=== PATIENT | female | born 1940 | race Caucasian/White ===

== ENCOUNTER 2018-09-15 11:41 | Inpatient (IN) | payer MEDICARE, BC ==
[2018-09-15] MEDS: SOD CHLORIDE 0.9% 500 ML IV (12:40)
[2018-09-15 12:48] LABS: ADD MAN DIFF? NO
[2018-09-15 12:53] LABS: WHITE BLOOD COUNT 7.5 10^3/ul (4.8-10.8)
[2018-09-15 12:53] LABS: BASOPHILS % 0.3 % (0.0-2.0); EOSINOPHILS # 0.1 10^3/ul (0.0-0.5); EOSINOPHILS % 1.7 % (0.0-7.0); HEMATOCRIT 34.1 % (37.0-47.0); HEMOGLOBIN 10.9 g/dl (12.0-16.0); LYMPHOCYTES # 0.9 10^3/ul (0.8-2.9); LYMPHOCYTES % 11.5 % (15.0-51.0); MEAN CORPUSCULAR HEMOGLOBIN 31.1 pg (29.0-33.0); MEAN CORPUSCULAR VOLUME 97.2 fl (82.0-101.0); MEAN PLATELET VOLUME 12.1 fl (7.4-10.4); MONOCYTES % 12.7 % (0.0-11.0); NEUTROPHIL # 5.5 10^3/ul (1.6-7.5); NEUTROPHILS % 72.9 % (39.0-77.0); PLATELET COUNT 215 10^3/UL (140-415); RED BLOOD COUNT 3.51 10^6/ul (4.20-5.40); RED CELL DISTRIBUTION WIDTH 14.4 % (11.5-14.5)
[2018-09-15 13:20] LABS: ALANINE AMINOTRANSFERASE 15 IU/L (13-69); ALBUMIN 3.4 g/dl (3.3-4.9); ALBUMIN/GLOBULIN RATIO 1.09; ALKALINE PHOSPHATASE 74 IU/L (42-121); ANION GAP 8 (5-13); ASPARTATE AMINO TRANSFERASE 38 IU/L (15-46); BILIRUBIN,INDIRECT 0.1 mg/dl (0-1.1); BILIRUBIN,TOTAL 0.1 mg/dl (0.2-1.3); BLOOD UREA NITROGEN 36 mg/dl (7-20); CALCIUM 9.7 mg/dl (8.4-10.2); CARBON DIOXIDE 29 mmol/L (21-31); CHLORIDE 105 mmol/L (97-110); CREATININE 2.39 mg/dl (0.44-1.00); GLUCOSE 96 mg/dl (70-220); LIPASE 17 U/L (23-300); POTASSIUM 4.4 mmol/L (3.5-5.1); SODIUM 142 mmol/L (135-144); TOTAL PROTEIN 6.5 g/dl (6.1-8.1)
[2018-09-15 13:41] LABS: TROPONIN-I 0.296 ng/ml (0.000-0.120)
[2018-09-15] MEDS: ASPIRIN 325 MG TAB PO (13:53)
[2018-09-15 14:54] LABS: ADD UMIC YES; UR ASCORBIC ACID NEGATIVE (NEGATIVE); UR BACTERIA FEW /HPF (NONE SEEN); UR BILIRUBIN (Dip) NEGATIVE (NEGATIVE); UR BLOOD (Dip) NEGATIVE (NEGATIVE); UR CLARITY SLIGHTLY CLOUDY (CLEAR); UR COLOR YELLOW (YELLOW); UR GLUCOSE (Dip) NEGATIVE (NEGATIVE); UR KETONES (Dip) TRACE mg/dL (NEGATIVE); UR LEUKOCYTE ESTERASE (Dip) TRACE Leu/ul (NEGATIVE); UR NITRITE (Dip) POSITIVE (NEGATIVE); UR RBC 0 /HPF (0-5); UR SPECIFIC GRAVITY (Dip) 1.014 (1.003-1.030); UR SQUAMOUS EPITHELIAL CELL FEW /HPF (FEW); UR TOTAL PROTEIN (Dip) NEGATIVE (NEGATIVE); UR UROBILINOGEN (Dip) NEGATIVE (NEGATIVE); UR WBC 3 /HPF (0-5)
[2018-09-15] MEDS ORDERED: ACETAMINOPHEN 325 MG TAB PO (15:00)
[2018-09-15] MEDS ORDERED: MAGNESIUM HYDROXIDE 30ML CUP PO (16:30)
[2018-09-15] MEDS ORDERED: ONDANSETRON 4 MG INJ IV (16:30)
[2018-09-15] MEDS ORDERED: NACL 0.9% 3 ML SYG IV (16:30)
[2018-09-15] MEDS ORDERED: HYDROCODONE/APAP (5/325) TAB PO (16:30)
[2018-09-15] MEDS: SOD CHLORIDE 0.9% 1,000 ML IV ×2 (16:59→22:37)
[2018-09-15] MEDS: ONDANSETRON 4 MG INJ IV (17:05)
[2018-09-15] MEDS: morphine 2 MG INJ IV (17:05)
[2018-09-15] MEDS: CEFTRIAXONE 1 GM/50 ML (PMX) 50 ML IVPB (17:06)
[2018-09-15] MEDS: LORAZEPAM 1 MG TAB PO (21:21)
[2018-09-15] MEDS: HEPARIN 5,000 UNIT/1 ML VIAL SC (21:31)
[2018-09-15] MEDS: DIVALPROEX (ER) 500 MG TAB PO (21:31)
[2018-09-15] MEDS: CALCIUM CARBONATE 750 MG CHEW TAB PO (21:31)
[2018-09-15] MEDS: RISPERIDONE 0.25 MG TAB PO (21:31)
[2018-09-15] MEDS: ACETAMINOPHEN 325 MG TAB PO (22:36)
[2018-09-15] MEDS: DOCUSATE SODIUM 100 MG CAP PO (22:36)
[2018-09-16] MEDS ORDERED: DIPHENHYDRAMINE 25 MG CAP PO (01:30)
[2018-09-16 01:33] LABS: TROPONIN-I 0.254 ng/ml (0.000-0.120)
[2018-09-16] MEDS: PANTOPRAZOLE (EC) 40 MG TAB PO (05:05)
[2018-09-16] MEDS: ACETAMINOPHEN 325 MG TAB PO ×2 (05:06→15:03)
[2018-09-16] MEDS: SOD CHLORIDE 0.9% 1,000 ML IV ×2 (05:11→21:15)
[2018-09-16 06:41] LABS: ADD MAN DIFF? NO
[2018-09-16 06:50] LABS: BASOPHILS % 0.1 % (0.0-2.0); EOSINOPHILS # 0.2 10^3/ul (0.0-0.5); EOSINOPHILS % 2.5 % (0.0-7.0); HEMATOCRIT 32.2 % (37.0-47.0); HEMOGLOBIN 10.2 g/dl (12.0-16.0); LYMPHOCYTES # 0.8 10^3/ul (0.8-2.9); MEAN CORPUSCULAR HEMOGLOBIN 31.4 pg (29.0-33.0); MEAN CORPUSCULAR HGB CONC 31.7 g/dl (32.0-37.0); MEAN CORPUSCULAR VOLUME 99.1 fl (82.0-101.0); MONOCYTE # 0.8 10^3/ul (0.3-0.9); MONOCYTES % 11.1 % (0.0-11.0); NEUTROPHIL # 5.6 10^3/ul (1.6-7.5); NEUTROPHILS % 74.9 % (39.0-77.0); PLATELET COUNT 186 10^3/UL (140-415); RED BLOOD COUNT 3.25 10^6/ul (4.20-5.40); RED CELL DISTRIBUTION WIDTH 14.5 % (11.5-14.5)
[2018-09-16 06:50] LABS: WHITE BLOOD COUNT 7.5 10^3/ul (4.8-10.8)
[2018-09-16 07:10] LABS: ANION GAP 6 (5-13); BLOOD UREA NITROGEN 33 mg/dl (7-20); CALCIUM 9.1 mg/dl (8.4-10.2); CARBON DIOXIDE 28 mmol/L (21-31); CHLORIDE 107 mmol/L (97-110); CREATININE 2.07 mg/dl (0.44-1.00); GLUCOSE 103 mg/dl (70-220); MAGNESIUM 1.7 mg/dl (1.7-2.5); PHOSPHORUS 3.9 mg/dl (2.5-4.9); POTASSIUM 4.5 mmol/L (3.5-5.1); SODIUM 141 mmol/L (135-144)
[2018-09-16 07:11] LABS: HEMOGLOBIN A1C 5.5 % (0-5.9)
[2018-09-16 07:19] LABS: TROPONIN-I 0.218 ng/ml (0.000-0.120)
[2018-09-16] MEDS: SPIRONOLACTONE 25 MG TAB PO (08:26)
[2018-09-16] MEDS: METOPROLOL (XL) 50 MG TAB PO (08:26)
[2018-09-16] MEDS: DULOXETINE 30 MG CAP DR PO (08:26)
[2018-09-16] MEDS: HEPARIN 5,000 UNIT/1 ML VIAL SC ×2 (08:36→21:19)
[2018-09-16] MEDS: CALCIUM CARBONATE 750 MG CHEW TAB PO ×2 (09:00→21:15)
[2018-09-16] MEDS: ASPIRIN 81 MG TAB PO (09:30)
[2018-09-16] MEDS: LORAZEPAM 1 MG TAB PO (15:11)
[2018-09-16] MEDS: CEFTRIAXONE 1 GM/50 ML (PMX) 50 ML IVPB (16:04)
[2018-09-16] MEDS: MAGNESIUM SULFATE 2 GM/50 ML 50 ML IVPB (16:59)
[2018-09-16] MEDS: RISPERIDONE 0.25 MG TAB PO (21:15)
[2018-09-16] MEDS: DIVALPROEX (ER) 500 MG TAB PO (21:15)
[2018-09-17] MEDS: LORAZEPAM 1 MG TAB PO (04:16)
[2018-09-17] MEDS: ACETAMINOPHEN 325 MG TAB PO (04:16)
[2018-09-17] MEDS: PANTOPRAZOLE (EC) 40 MG TAB PO (04:47)
[2018-09-17 08:36] LABS: ANION GAP 7 (5-13); BLOOD UREA NITROGEN 30 mg/dl (7-20); CARBON DIOXIDE 26 mmol/L (21-31); CHLORIDE 108 mmol/L (97-110); CREATININE 2.07 mg/dl (0.44-1.00); GLUCOSE 105 mg/dl (70-220); MAGNESIUM 2.3 mg/dl (1.7-2.5); SODIUM 141 mmol/L (135-144)
[2018-09-17] MEDS: METOPROLOL (XL) 50 MG TAB PO (08:47)
[2018-09-17] MEDS: ASPIRIN 81 MG TAB PO (08:47)
[2018-09-17] MEDS: SPIRONOLACTONE 25 MG TAB PO (08:47)
[2018-09-17] MEDS: CALCIUM CARBONATE 750 MG CHEW TAB PO (08:47)
[2018-09-17] MEDS: LABETALOL HCL 20MG INJ IV ×2 (08:48→13:06)
[2018-09-17] MEDS: HEPARIN 5,000 UNIT/1 ML VIAL SC (08:48)
[2018-09-17] MEDS: DULOXETINE 30 MG CAP DR PO (10:11)
[2018-09-17] MEDS: CEFTRIAXONE 1 GM/50 ML (PMX) 50 ML IVPB (11:09)
== END 2018-09-17 16:00 | disposition home health service (06) | DRG 71 ==
LOC: E/R 11:41 → TEL 14:33
DX: G93.41 Metabolic encephalopathy (principal); N39.0 Urinary tract infection, site not specified; R53.81 Other malaise; I12.9 Hypertensive chronic kidney disease with stage 1 through stage 4 chronic kidney disease, or unspecified chronic kidney disease; N18.9 Chronic kidney disease, unspecified; F99 Mental disorder, not otherwise specified; Z79.82 Long term (current) use of aspirin
CPT/HCPCS: 36415; 71045; 73030; 80048; 80053; 81001; 83036; 83605; 83690; 83735; 84100; 84484; 85025; 87040-91; 87086; 93005; 93306; 97162; 99285-25; G0378